=== PATIENT | male | born 1970 | race American Indian/Alaskan Native ===

== ENCOUNTER 2021-07-12 06:46 | Day surgery (SDC) | payer OTHER ==
[2021-07-12] MEDS ORDERED: ASPIRIN EC 325 MG TAB PO NR (07:20)
[2021-07-12 07:44] LABS: Basophils % (Auto) 0.7 % (0.0-1.8); Eosinophils # (Auto) 0.3 K/mm3 (0.0-0.4); Eosinophils % (Auto) 5.3 % (0.0-4.3); Hemoglobin 13.5 gm/dl (11.8-15.2); Lymphocytes # (Auto) 1.7 K/mm3 (1.2-5.4); Lymphocytes % (Auto) 30.4 % (13.4-35.0); Mean Corpuscular HGB Conc 32 % (32-34); Mean Corpuscular Volume 83 fl (84-94); Monocytes # (Auto) 0.5 K/mm3 (0.0-0.8); Monocytes % (Auto) 8.9 % (0.0-7.3); Platelet Count 266 K/mm3 (140-440); Red Blood Count 5.03 M/mm3 (3.65-5.03)
[2021-07-12 07:59] LABS: INR 0.86 (0.87-1.13)
[2021-07-12] MEDS ORDERED: HEPARIN/NS 5000 UNIT/500ML 1,000 ML IR ONE (08:03)
[2021-07-12] MEDS ORDERED: NITROGLYCERIN SYRINGE 3 ML ONE (08:05)
[2021-07-12 08:06] LABS: BUN/Creatinine Ratio 21; Blood Urea Nitrogen 21 mg/dL (9-20); Calcium 8.7 mg/dL (8.4-10.2); Hemolysis Index 11
[2021-07-12] MEDS: fentaNYL 100 MCG/2 ML INJ ONE ×3 (08:20→09:14)
[2021-07-12] MEDS: MIDAZOLAM 2 MG/2 ML INJ ONE ×2 (08:20→09:13)
[2021-07-12] MEDS: LIDOCAINE (2%) 20 MG/1 ML VIAL 20 ML MDV INFILTRATI ONE ×2 (08:21→09:15)
[2021-07-12] MEDS: HEPARIN 10,000 UNITS/10 ML VIAL ONE ×2 (08:21→09:17)
[2021-07-12] MEDS: SODIUM CHLORIDE 0.9% 500 ML 500 ML IV SCH ×2 (08:22→08:28)
[2021-07-12] MEDS: VERAPAMIL 5 MG/2 ML INJ ONE ×2 (08:22→09:17)
[2021-07-12] MEDS ORDERED: ACETAMINOPHEN 500 MG TAB PO NR (09:48)
[2021-07-12] MEDS ORDERED: ACETAMINOPHEN 500 MG TAB ONE (09:50)
--- NOTE | 2021-07-12 10:00 | Cardiac Catherization Report ---
DATE OF PROCEDURE: 07/12/2021 CARDIAC CATHETERIZATION REFERRING PHYSICIAN: Dr. Rowe. INDICATIONS FOR PROCEDURE: The patient is a pleasant 51-year-old -[place] gentleman with a history of hypertension, who had chest pain after stress test, referred for left heart catheterization. Risks, benefits and alternatives explained at length prior to obtaining informed consent. PROCEDURE IN DETAIL: The patient was brought to cardiac cath technician in a postabsorptive state, prepped and draped in sterile fashion. Eran's test in right hand was normal. 2 mL of 2% lidocaine used to anesthetize the right wrist. A standard 6-Danish hydrophilic sheath used to cannulate the right radial artery via modified Seldinger technique. All exchanges performed to exchange a J-tip guidewire. JL3.5 catheter was used to engage the left main. No dampening or ventricularization. Cineangiography performed in multiple projections. JR4 catheter used to cross the aortic valve under fluoroscopic guidance. Left ventriculography was performed in 30 CARBAJAL and 30 IDA projections via hand injections, catheter flushed. Manual pullback was performed with continuous pressure monitoring. Catheter used to engage the right coronary. No dampening or ventricularization. Cineangiography performed in all projections. Next, catheter removed from the body of wire, sheath removed. Manual pressure used to achieve hemostasis. DATA: Aortic pressure is 130/80, LV pressure is 130, LVEDP of 15 mmHg. Left ventriculography reveals normal systolic performance with estimated ejection fraction 55-60%. No evidence of aortic stenosis. CORONARY ANATOMY: This is a right dominant system. There is separate ostia of the LAD and left circumflex. LAD is a large vessel, courses anterior intergroove, wraps around the apex. No significant disease. Left circumflex: Moderate sized vessel, courses AV groove. No significant disease. Right coronary is a large vessel, courses the AV groove, bifurcates in the PDA into the posterolateral branch. No discrete stenoses noted. I directly supervised the administration of moderate sedation with fentanyl and Versed from 9:10 a.m. to 9:35 a.m. No immediate complications identified. CONCLUSIONS: 1. No angiographic evidence of significant epicardial coronary artery disease in this right dominant system. 2. Separate ostia of the LAD and left circumflex. 3. Normal left ventricular systolic performance, estimated ejection fraction 55-60%. 4. No evidence of aortic stenosis. 5. Normal LVEDP. At this point, I believe his chest pain is likely noncardiac versus microvascular. If he does continue to have chest pain, we will consider Ranexa therapy. Side effect profile discussed. Follow up with Dr. Rowe in the office. Standard radial care. Results of procedure explained at length to the patient. All questions and concerns were addressed. TID: [id number] RECEIPT: [id number] CIPRIANO/CAMPBELL
--- NOTE | 2021-07-12 10:01 | Electrocardiograph Report ---
[facility] Test Date: 2021-07-12 Test Time: 07:14:07 Pat Name: KEMAR NICHOLS JR Department: Room: Gender: M Personal Lines Sales Rep: JESSICA : 1970 Requested By: CORNELL OBRIEN Order Number: [id number] Reading MD: Cornell Obrien Measurements Intervals [place] Rate: 61 P: 33 [place]: 151 QRS: 11 QRSD: 99 T: 7 QT: 416 QTc: 420 Interpretive Statements Sinus rhythm ST elev, probable normal early repol pattern No previous ECG available for comparison Electronically Signed On 07-12-2021 10:00:49 EST by Cornell Obrien
--- NOTE | 2021-07-12 10:42 | Short Stay Summary ---
Short Stay Documentation Date of service: 07/12/21 - History H&P: obtained from office - Allergies and Medications Current Medications: Allergies No Known Allergies Allergy (Verified 07/12/21 07:19) Home Medications Medication Instructions Recorded Confirmed Last Taken Type Losartan/Hydrochlorothiazide 1 each PO DAILY 07/12/21 07/12/21 07/12/21 History [Losartan-Hctz 50-12.5 mg Tab] Active Medications Sodium Chloride (Nacl 0.9% 500 Ml) 500 mls @ 50 mls/hr IV DIRECT RAYMUNDO Stop: 07/12/21 17:59 Last Admin: 07/12/21 08:28 Dose: 50 mls/hr - Physical exam Integumentary: other (Dressing clean dry and intact with no bleeding or hematoma) - Brief post op/procedure progress note Date of procedure: 07/12/21 Pre-op diagnosis: chest pain Post-op diagnosis: other (Normal coronaries) Anesthesia: local Estimated blood loss: minimal - Hospital course Hospital course: Patient presented today for cardiac cath. Patient tolerated procedure well with no complications. Patient will be discharged home with prescription for Ranexa 500 mg p.o. twice daily - Disposition Condition at discharge: Good Disposition: 01 HOME / SELF CARE / HOMELESS - Discharge Diagnoses (1) Chest pain Status: Acute (2) HTN (hypertension) Status: Acute (3) Obesity Status: Acute Short Stay Discharge Plan Activity: advance as tolerated Diet: low fat, low cholesterol, low salt Wound: keep clean and dry, per your surgeon's advice Follow up with: Rasheed PRITCHARD MD [Primary Care Provider] - 7 Days STEWART PETERS MD [Staff Physician] - 7 Days Forms: CardCath PCI D/C Instructions
[2021-07-12 12:05] VITALS: BP 113/66
== END 2021-07-12 12:45 | disposition home or self-care (01) ==
LOC: CATHLABREC 06:46
PROVIDERS: ATTEND Internal Medicine
DX: R07.89 Other chest pain (principal); R94.39 Abnormal result of other cardiovascular function study; I10 Essential (primary) hypertension; E66.9 Obesity, unspecified; Z79.899 Other long term (current) drug therapy; Z87.891 Personal history of nicotine dependence; Z68.41 Body mass index [BMI] 40.0-44.9, adult; Z98.890 Other specified postprocedural states
CPT/HCPCS: 36415; 80048; 85025; 85610; 85730; 93005; 93010; 93458; 99156; 99157; C1894; J1644; J1815; J2250; J3010; J3490; J7040; Q9967